=== PATIENT | male | born 1990 | race Caucasian/White ===

== ENCOUNTER 2016-12-06 11:34 | Emergency (ER) | payer OTHER ==
[~2016-12-06] VITALS: Ht 167.6 cm; Wt 77.0 kg
[2016-12-06 11:35] VITALS: BP 130/74; PULSE 100; RESP 20; TEMP 97.9; O2SAT 99
[2016-12-06] MEDS ORDERED: LORazepam 1 MG TAB PO ONE (12:30)
--- NOTE | 2016-12-06 12:33 | PD ---
HPI Chief Complaint: Psychiatric Symptoms Time Seen by Provider: 12:19 Travel History International Travel<30 days: No Contact w/Intl Traveler<30days: No Traveled to known affect area: No History of Present Illness HPI 26yo M with PMH of anxiety and depression presents to the ED with c/o feeling anxious. States his girlfriend and daughter left him yesterday and he has been feeling worst since then. Pt feels sob but that has been going on for a year and also tingling in his fingers. Denies any fever, cough, chest pain, n/v, abdominal pain, focal weakness or numbness. Pt denies any suicidal or homicidal ideations. PFSH Past Medical History Anxiety: Yes Depression: Yes Diminished Hearing: No Tetanus Vaccination: Unknown Past Surgical History Surgical History: No Previous Surgery Social History Alcohol Use: Yes (OCASSIONALLY) Tobacco Use: No Substance Use: No Allergies-Medications (Allergen,Severity, Reaction): Coded Allergies: No Known Allergies (Unverified , 12/06/16) Reported Meds & Prescriptions Reported Meds & Active Scripts Active No Active Prescriptions or Reported Medications Review of Systems Except as stated in HPI: all other systems reviewed are Neg Physical Exam Narrative GENERAL: 26yo M anxious appearing. SKIN: Focused skin assessment warm/dry. HEAD: Atraumatic. Normocephalic. CARDIOVASCULAR: Regular rate and rhythm. No murmur appreciated. RESPIRATORY: No accessory muscle use. Clear to auscultation. Breath sounds equal bilaterally. GASTROINTESTINAL: Abdomen soft, non-tender, nondistended. MUSCULOSKELETAL: No obvious deformities. No clubbing. No cyanosis. No edema. NEUROLOGICAL: Awake and alert. No obvious cranial nerve deficits. Motor grossly within normal limits. Normal speech. PSYCHIATRIC: Anxious. Data Data Last Documented VS Vital Signs Date Time Temp Pulse Resp B/P Pulse Ox O2 Delivery O2 Flow Rate FiO2 12/06/16 11:35 97.9 100 20 130/74 99 Room Air Orders Electrocardiogram (12/06/16 ) Basic Metabolic Panel (Bmp) (12/06/16 12:28) Magnesium (Mg) (12/06/16 12:28) Thyroid Stimulating Hormone (12/06/16 12:28) Chest, Single Ap (12/06/16 ) Lorazepam (Ativan) (12/06/16 12:30) Labs Laboratory Tests Test 12/06/16 12:45 Sodium Level 142 MEQ/L Potassium Level 3.4 MEQ/L Chloride Level 113 MEQ/L Carbon Dioxide Level 17.3 MEQ/L Anion Gap 12 MEQ/L Blood Urea Nitrogen 13 MG/DL Creatinine 1.24 MG/DL Estimat Glomerular Filtration 71 ML/MIN Rate Random Glucose 104 MG/DL Calcium Level 9.6 MG/DL Magnesium Level 2.5 MG/DL Thyroid Stimulating Hormone 1.970 uIU/ML 3rd Gen [facility] Medical Decision Making Medical Screen Exam Complete: Yes Emergency Medical Condition: Yes Interpretation(s) EKG: NSR 84bpm. Normal axis. No ST segment elevation or depression. Differential Diagnosis Anxiety vs. thyroid disorder vs. adjustment disorder vs. depression Narrative Course 26yo M here with what sounds like panic attack after his girlfriend and daughter left him yesterday. Labs reviewed, CO2 low likely secondary to hyperventilation. TSH normal. EKG wnl. CXR showed no acute disease. Pt given ativan 1mg PO and feels a little better. Pt needs to follow up with psychiatry as outpatient. Currently is not a threat to himself and others. Return precautions given. Diagnosis Primary Impression: Anxiety Patient Instructions: General Instructions Departure Forms: Tests/Procedures Additional Instructions: Please follow up with a psychiatrist in 1-2 days. Return to the ED if symptoms worsen. Med/Other Pt SpecificInfo: No Change to Meds Scripts No Active Prescriptions or Reported Meds Disposition: 01 DISCHARGE HOME Condition: Stable Tianna Burden Dec 06, 2016 12:33
--- NOTE | 2016-12-06 13:00 | RADRPT ---
EXAM DATE/TIME: 12/06/2016 12:33 [facility] COMPARISON: No previous studies available for comparison. INDICATIONS : Short of breath. MEDICAL HISTORY : Anxiety attacks with tingling extremeties. SURGICAL HISTORY : None. ENCOUNTER: Initial ACUITY: 1 day PAIN SCORE: 0/10 LOCATION: Bilateral chest FINDINGS: A single view of the chest demonstrates the lungs to be symmetrically aerated without evidence of mas s, infiltrate or effusion. The cardiomediastinal contours are unremarkable. Osseous structures are intact. CONCLUSION: No acute disease. Chaitanya Dawson MD FACR on December 06, 2016 at 12:58 Board Certified Radiologist. This report was verified electronically.
[2016-12-06 13:11] LABS: BICARBONATE 17.3 MEQ/L (21.0-32.0); MAGNESIUM 2.5 MG/DL (1.5-2.5); POTASSIUM 3.4 MEQ/L (3.5-5.1)
--- NOTE | 2016-12-07 12:59 | EKG ---
Date Performed: 12/06/2016 Time Performed: 13:52:01 PTAGE: 26 years EKG: Sinus rhythm NORMAL ECG INTERPRETATION BASED ON A DEFAULT AGE OF 41 YEARS NO PREVIOUS TRACING DOCTOR: Lion Osborne Interpretating Date/Time 12/07/2016 12:54:01
== END 2016-12-06 15:12 | disposition home or self-care (01) ==
LOC: NEPD 11:34
DX: F41.9 Anxiety disorder, unspecified (principal); R06.02 Shortness of breath; R20.2 Paresthesia of skin; R06.4 Hyperventilation; F32.9 Major depressive disorder, single episode, unspecified
CPT/HCPCS: 71010; 80048; 83735; 84443; 93005; 99285